=== PATIENT | female | born 1950 | race African-American/Black ===

== ENCOUNTER 2016-12-09 01:50 | Emergency (ER) | payer MEDICARE, OTHER ==
[2016-12-09 03:15] VITALS: TEMP 97.9; BMI 29.4
--- NOTE | 2016-12-09 03:50 | PDOC ---
History of Present Illness - General History Source: Patient Exam Limitations: No Limitations - History of Present Illness Initial Comments: 12/09/16 03:59 The patient is a 66 year old female with a significant past medical history of HTN, who presents to the ER with left foot pain for one day. Patient reports her right foot pain began yesterday morning. She describes the pain as a sharp and shooting pain localized to the great toe with radiation to the distal toe. The patient says the pain worsened throughout the day. Patient says the pain is exacerbated on movement. Surgical Hx: Bunionectomy in right foot. Denies taking any medication for the pain Denies fever, chills, cough Denies paresthesia Denies numbness or weakness <Maia Butterfield - Last Filed: 12/09/16 04:02> <Kizzy Ospina - Last Filed: 12/10/16 22:30> - General Stated Complaint: FOOT PAIN Time Seen by Provider: 12/09/16 02:38 Past History <Maia Butterfield - Last Filed: 12/09/16 04:02> - Past Medical History HTN: Yes Suicide Attempt (Hx): No - Immunization History Immunization Up to Date: Yes - Psycho/Social/Smoking Cessation Hx Anxiety: No Suicidal Ideation: No Smoking Status: No Smoking History: Unknown if ever smoked Years of Tobacco Use: 0 Have you smoked in the past 12 months: No Number of Cigarettes Smoked Daily: 0 Cigars Per Day: 0 Information on smoking cessation initiated: No Hx Alcohol Use: No Drug/Substance Use Hx: No Substance Use Type: None <Kizzy Ospina - Last Filed: 12/10/16 22:30> - Past Medical History Allergies/Adverse Reactions: Allergies Allergy/AdvReac Type Severity Reaction Status Date / Time No Known Allergies Allergy Verified 06/16/12 01:33 Home Medications: Ambulatory Orders Naproxen [Naprosyn -] 500 mg PO BID PRN #15 tablet 12/09/16 Review of Systems - Review of Systems Comments:: 12/09/16 03:59 CONSTITUTIONAL: Absent: fever, no chills, no fatigue EYES: Absent: visual changes ENT: Absent: ear pain, no sore throat CARDIOVASCULAR: Absent: chest pain, no palpitations RESPIRATORY: Absent: cough, no SOB GI: Absent: abdominal pain, no nausea, no vomiting, no constipation, no diarrhea GENITOURINARY: Absent: dysuria, no frequency, no hematuria MUSCULOSKELETAL: Present: Left big toe pain Absent: back pain, no arthralgia, no myalgia SKIN: Absent: rash NEURO: Absent: headache <Maia Butterfield - Last Filed: 12/09/16 04:02> *Physical Exam - Vital Signs Last Vital Signs Temp Pulse Resp BP Pulse Ox 97.9 F 75 15 141/87 100 12/09/16 01:51 12/09/16 01:51 12/09/16 01:51 12/09/16 01:51 12/09/16 01:51 - Physical Exam Comments: 12/09/16 04:00 GENERAL: Well-appearing, well-nourished. No apparent distress. HEENT: Normocephalic, atraumatic. PERRL, EOM intact. CARDIOVASCULAR: Normal S1, S2. Regular rate and rhythm. PULMONARY: Clear to auscultation bilaterally. ABDOMEN: Soft, non-distended, non-tender. EXTREMITIES: Tender to palpation on the plantar surface of the left great toe. No erythema, no swelling. Sensation intact. Decreased ROM of left great toe secondary to pain. Bunion in left foot. SKIN: Warm, dry. No rash NEUROLOGICAL: No focal neurological deficits. <GreerMaia - Last Filed: 12/09/16 04:02> - Vital Signs Last Vital Signs Temp Pulse Resp BP Pulse Ox 97.9 F 75 15 141/87 100 12/09/16 01:51 12/09/16 01:51 12/09/16 01:51 12/09/16 01:51 12/09/16 01:51 <Kizzy Ospina - Last Filed: 12/10/16 22:30> ED Treatment Course - LABORATORY CBC & Chemistry Diagram: 12/09/16 04:03 12/09/16 04:03 <Kizzy Ospina - Last Filed: 12/10/16 22:30> Medical Decision Making - Medical Decision Making 12/09/16 07:09 Pt comes with foot pain; Abrasions/arthritic lesions on the 1st MTP joint. Pt has normal labs; sed rate pending. She will be signed out to the day ER doc. <Kizzy Ospina - Last Filed: 12/10/16 22:30> *DC/Admit/Observation/Transfer - Attestations Scribe Attestion: 12/09/16 04:02 Documentation prepared by Maia Butterfield, acting as front office medical assistant for Kizzy Ospina MD. <Maia Butterfield - Last Filed: 12/09/16 04:02> <Kizzy Ospina - Last Filed: 12/10/16 22:30> Diagnosis at time of Disposition: Toe pain, right - Discharge Dispostion Disposition: HOME Condition at time of disposition: Improved - Prescriptions Prescriptions: Naproxen [Naprosyn -] 500 mg PO BID PRN #15 tablet PRN Reason: Pain - Referrals Referrals: Allyn Kendall MD [Primary Care Provider] - - Patient Instructions Printed Discharge Instructions: DI for Leg Pain Additional Instructions: Return to the emergency department immediately with ANY new, persistent or worsening symptoms. You MUST call and follow up with your doctor tomorrow for further evaluation of your symptoms. Results were discussed with you. Please make sure your doctor reviews the results of your emergency evaluation. If you had any xrays during your visit, it was read preliminarily by myself, a Radiologist will review it and if there are any additional findings we will call you. Print Language: ROMANSH
[2016-12-09] MEDS ORDERED: INDOMETHACIN 50 MG CAPSULE PO ONE (03:52)
[2016-12-09 04:09] LABS: MCH 29.2 pg (25.7-33.7); MCHC 32.2 g/dl (32.0-36.0); MEAN CELL VOLUME 90.8 fl (80-96); MEAN PLT VOLUME 9.6 fl (7.5-11.1); PLATELET COUNT 195 K/MM3 (134-434); RDW 13.9 % (11.6-15.6); WHITE BLOOD COUNT 7.4 K/mm3 (4.0-10.0)
[2016-12-09 05:14] LABS: ALBUMIN 3.5 g/dl (3.4-5.0); ANION GAP 11 (8-16); BILIRUBIN,TOTAL 0.3 mg/dL (0.2-1.0); CALCIUM 8.7 mg/dL (8.5-10.1); CO2 29 mmol/L (21-32); CREATININE 0.9 mg/dL (0.55-1.02); GLUCOSE,RANDOM 121 mg/dL (74-106); SGOT/AST 18 U/L (15-37); SGPT/ALT 22 U/L (12-78); TOT PROT 7.6 g/dl (6.4-8.2)
[2016-12-09 05:15] LABS: ALK PHOS 117 U/L (45-117)
[2016-12-09 05:31] LABS: URIC ACID 5.5 mg/dL (2.6-7.2)
[2016-12-09 07:23] LABS: ERYTHROCYTE SEDIMENTATION RATE 16 mm/hr (0-30)
--- NOTE | 2016-12-09 08:16 | PDOC ---
*Physical Exam - Vital Signs Last Vital Signs Temp Pulse Resp BP Pulse Ox 97.9 F 75 15 141/87 100 12/09/16 01:51 12/09/16 01:51 12/09/16 01:51 12/09/16 01:51 12/09/16 01:51 ED Treatment Course - LABORATORY CBC & Chemistry Diagram: 12/09/16 04:03 12/09/16 04:03 - ADDITIONAL ORDERS Additional order review: Laboratory Results 12/09/16 04:03 Sodium 143 Potassium 4.0 Chloride 103 Carbon Dioxide 29 Anion Gap 11 BUN 13 D Creatinine 0.9 Creat Clearance w eGFR > 60 Random Glucose 121 H Uric Acid 5.5 Calcium 8.7 Total Bilirubin 0.3 D AST 18 ALT 22 Alkaline Phosphatase 117 Total Protein 7.6 Albumin 3.5 12/09/16 04:03 RBC 4.09 MCV 90.8 MCHC 32.2 RDW 13.9 MPV 9.6 - Medications Given in the ED: ED Medications Discontinued Medications Generic Name Dose Route Start Last Admin Trade Name Gomez PRN Reason Stop Dose Admin Indomethacin 50 mg 12/09/16 03:52 12/09/16 04:50 Indocin - PO 12/09/16 03:53 50 mg ONCE ONE Administration Medical Decision Making - Medical Decision Making 12/09/16 08:16 The patient wa ssigned out to me from Dr. Ospina with atraumatic L toe pain x 1 day. pt received xrays and labs that were unremarkarable suspect possible gout pt feeling improved will dc pt on naproxen return precautions were discussed I discussed the physical exam findings, ancillary test results and final diagnoses with the patient. I answered all of the patient's questions. The patient was satisfied with the care received and felt comfortable with the discharge plan and treatment plan. The patient will call their primary care physician within 24 hours to arrange follow-up and will return to the Emergency Department with any new, persistent or worsening symptoms. *DC/Admit/Observation/Transfer Diagnosis at time of Disposition: Toe pain, right - Discharge Dispostion Disposition: HOME Condition at time of disposition: Improved Admit: No - Referrals Referrals: Allyn Kendall MD [Primary Care Provider] - - Patient Instructions Additional Instructions: Return to the emergency department immediately with ANY new, persistent or worsening symptoms. You MUST call and follow up with your doctor tomorrow for further evaluation of your symptoms. Results were discussed with you. Please make sure your doctor reviews the results of your emergency evaluation. If you had any xrays during your visit, it was read preliminarily by myself, a Radiologist will review it and if there are any additional findings we will call you. Print Language: MOHAWK - Post Discharge Activity
[2016-12-09 09:00] VITALS: BP 144/99; PULSE 69
== END 2016-12-09 08:55 | disposition home or self-care (01) ==
LOC: JER 01:50
DX: M10.9 Gout, unspecified (principal); M79.675 Pain in left toe(s); I10 Essential (primary) hypertension
CPT/HCPCS: 36415; 73630-TC-LT; 80053; 84550; 85027; 85651; 99282-25